=== PATIENT | male | born 1975 | race Caucasian/White ===

== ENCOUNTER 2023-05-28 16:01 | Observation (INO) | payer OTHER ==
[2023-05-28] MEDS ORDERED: LIDOCAINE 2%-EPI 1:100,000 20 ML VIAL SQ STA (16:21)
[2023-05-28] MEDS ORDERED: TRANEXAMIC 1,000 MG/100ML-NACL 1,000 MG in SALINE 1 100ML.BAG IVPB ONE (16:28)
--- NOTE | 2023-05-28 16:41 | ED ---
General Adult HPI - General Chief complaint: Syncope Stated complaint: Fall Time Seen by Provider: 05/28/23 16:06 Source: EMS Mode of arrival: EMS Limitations: no limitations - History of Present Illness Initial comments: Dictation was produced using [employer] dictation software. please excuse any grammatical, word or spelling errors. Chief Complaint: 47-year-old male presents to the received prior with head injury History of Present Illness: A 47-year-old incarcerated male presents to the ER for head injury. Patient was in his cell by himself when he fell backwards. Patient is amnestic to the recent past. He reports that his last recollection was looking up and seeing the camp guard. According to nurse received report from skilled nursing nurse she states that patient had seizure-like activity. Patient has no history of seizure. He has history of colostomy, restless leg syndrome and depression. There was significant bleeding from the posterior scalp. Patient complains of mild headache. he does report some anterior chest pain. The ROS documented in this emergency department record has been reviewed and confirmed by me. Those systems with pertinent positive or negative responses have been documented in the HPI. All other systems are other negative and/or noncontributory. - Related Data Home Medications Medication Instructions Recorded Confirmed Escitalopram [Lexapro] 10 mg PO DAILY 10/06/22 10/06/22 Gabapentin 300 mg PO TID 10/06/22 10/06/22 Previous Rx's Medication Instructions Recorded Acetaminophen Tab [Tylenol] 650 mg PO Q6HR PRN tab 10/07/22 Lisinopril-Hctz 20-25 mg 1 each PO BID #60 tab 10/07/22 [Zestoretic 20-25] Naproxen 250 mg PO Q8H #15 tablet 10/07/22 Nicotine 14Mg/24Hr Patch [Habitrol] 1 patch TRANSDERM DAILY #14 patch 10/07/22 Allergies Allergy/AdvReac Type Severity Reaction Status Date / Time Penicillins Allergy Rash/Hives Verified 10/06/22 11:07 Review of Systems ROS Statement: Those systems with pertinent positive or pertinent negative responses have been documented in the HPI. ROS Other: All systems not noted in ROS Statement are negative. Past Medical History Additional Past Medical History / Comment(s): DEPRESSION, RESTLESS LEG SYNDROME History of Any Multi-Drug Resistant Organisms: None Reported Past Surgical History: Bowel Resection Additional Past Surgical History / Comment(s): OSTOMY Past Psychological History: Depression Smoking Status: Current every day smoker Past Alcohol Use History: Occasional Past Drug Use History: None Reported General Exam - General Exam Comments Initial Comments: PHYSICAL EXAM: General Impression: Alert and oriented x3, not in acute distress HEENT: Complex left occipital laceration with active bleeding with large underlying hematoma, extra-ocular movements intact, pupils equal and reactive to light bilaterally, mucous membranes moist. Cardiovascular: Heart regular rate and rhythm Chest: Able to complete full sentences, no retractions, no tachypnea Abdomen: abdomen soft, non-tender, non-distended, no organomegaly Musculoskeletal: Pulses present and equal in all extremities, no peripheral edema Motor: no focal deficits noted Neurological: CN II-XII grossly intact, no focal motor or sensory deficits noted Skin: Intact with no visualized rashes Psych: Normal affect and mood Limitations: no limitations Course Vital Signs 05/28/23 16:05 Temperature 97.7 F Pulse Rate 62 Respiratory 18 Rate Blood Pressure 116/75 O2 Sat by Pulse 99 Oximetry EKG Findings - EKG Comments: EKG Findings:: My EKG interpretation: Ventricular rate 62, sinus rhythm,. Interval 150, QRS 11, QTc 450. No FL prolongation, no QTC prolongation, no ST or T-wave changes noted. Overall, this EKG is unremarkable Procedures - Laceration Laceration #1 Consent Obtained: verbal consent, emergent situation Indication: laceration Site: scalp Description: stellate Size of Sutures: other (gregory) Patient Tolerated Procedure: well Medical Decision Making - Medical Decision Making Was pt. sent in by a medical professional or institution (, PA, LEASE OPERATOR, urgent care, hospital, or [facility]...) When possible be specific @ -Halfway Did you speak to anyone other than the patient for history (EMS, parent, family, police, friend...)? What history was obtained from this source @ -sabrina akins at the bedside states that skilled nursing nurse was concerned he may have had a seizure Did you review nursing and triage notes (agree or disagree)? Why? @ -I reviewed and agree with nursing and triage notes Were old charts reviewed (outside hosp., previous admission, EMS record, old EKG, old radiological studies, urgent care reports/EKG's, [facility] records)? Report findings @ -No old charts were reviewed Differential Diagnosis (chest pain, altered mental status, abdominal pain women, abdominal pain men, vaginal bleeding, musculoskeletal, weakness, fever, dyspnea, syncope, headache, dizziness, GI bleed, back pain, seizure, CVA, palpatations, mental health)? @ -not applicable EKG interpreted by me (3pts min.). @ -None done X-rays interpreted by me (1pt min.). @ -See above CT interpreted by me (1pt min.). @ -CT head and C-spine and chest shows no acute processes U/S interpreted by me (1pt. min.). @ -None done What testing was considered but not performed or refused? (CT, X-rays, U/S, labs)? Why? @ -None What meds were considered but not given or refused? Why? @ -None Did you discuss the management of the patient with other professionals (professionals i.e. , PA, LEASE OPERATOR, lab, RT, psych nurse, social work program coordinator, forensic nurse, teacher, investment officer, case management social worker)? Give summary @ -Case discussed with Dr. Romero for observation admission Was smoking cessation discussed for >3mins.? @ -No Was critical care preformed (if so, how long)? @ -No Were there social determinants of health that impacted care today? How? (Homelessness, low income, unemployed, alcoholism, drug addiction, transportation, low edu. Level, literacy, decrease access to med. care, skilled nursing, rehab)? @ -No Was there de-escalation of care discussed even if they declined (Discuss DNR or withdrawal of care, Hospice)? DNR status @ -No What co-morbidities impacted this encounter? (DM, HTN, Smoking, COPD, CAD, Cancer, CVA, ARF, Chemo, Hep., AIDS, mental health diagnosis, sleep apnea, morbid obesity)? @ -None Was patient admitted / discharged? Hospital course, mention meds given and route, prescriptions, significant lab abnormalities, going to OR and other pertinent info. @ -47-year-old incarcerated male presents to the emergency department after having a fall incident at skilled nursing. Was unwitnessed. There was some history of seizure-like activity throughout the time of the fall. Patient is amnestic to the event. He has no history of seizure. Vital signs upon arrival are within acceptable limits. Imaging study shows no life-threatening traumatic injuries. Scalp laceration was repaired with gregory. Patient's lacerations reevaluated with cessation of bleeding. Patient will be admitted to the hospital for amnesia and concerns for new onset seizure. Medicine and neurology will be consulted. Undiagnosed new problem with uncertain prognosis? @ -No Drug Therapy requiring intensive monitoring for toxicity (Heparin, Nitro, Ins ulin, Cardizem)? @ -No Were any procedures done? @ -No Diagnosis/symptom? Acute, or Chronic, or Acute on Chronic? Uncomplicated (without systemic symptoms) or Complicated (systemic symptoms)? @ -Scalp laceration, head injury, new-onset seizure? Side effects of treatment? @ -No Exacerbation, Progression, or Severe Exacerbation? @ -No Poses a threat to life or bodily function? How? (Chest pain, USA, PA, pneumonia, PE, COPD, DKA, ARF, appy, cholecystitis, CVA, Diverticulitis, Homicidal, Suicidal, threat to staff... and all critical care pts) @ -yes - Lab Data Result diagrams: 05/28/23 16:51 05/28/23 16:51 Lab Results 05/28/23 05/28/23 05/28/23 Range/Units 16:51 16:51 16:51 WBC 5.7 (3.8-10.6) k/uL RBC 4.05 L (4.30-5.90) m/uL Hgb 13.8 (13.0-17.5) gm/dL Hct 38.6 L (39.0-53.0) % MCV 95.2 (80.0-100.0) fL MCH 33.9 (25.0-35.0) pg MCHC 35.7 (31.0-37.0) g/dL RDW 11.6 (11.5-15.5) % Plt Count 247 (150-450) k/uL MPV 7.3 Neutrophils % 60 % Lymphocytes % 29 % Monocytes % 7 % Eosinophils % 1 % Basophils % 0 % Neutrophils # 3.4 (1.3-7.7) k/uL Lymphocytes # 1.7 (1.0-4.8) k/uL Monocytes # 0.4 (0-1.0) k/uL Eosinophils # 0.1 (0-0.7) k/uL Basophils # 0.0 (0-0.2) k/uL PT 10.2 (9.0-12.0) sec INR 1.0 (<1.2) APTT 24.3 (22.0-30.0) sec Sodium 137 (137-145) mmol/L Potassium 4.6 (3.5-5.1) mmol/L Chloride 100 (98-107) mmol/L Carbon Dioxide 28 (22-30) mmol/L Anion Gap 9 mmol/L BUN 19 (9-20) mg/dL Creatinine 0.95 (0.66-1.25) mg/dL Est GFR (CKD-EPI)AfAm >90 (>60 ml/min/1.73 sqM) Est GFR (CKD-EPI)NonAf >90 (>60 ml/min/1.73 sqM) Glucose 100 H (74-99) mg/dL Calcium 9.5 (8.4-10.2) mg/dL Magnesium 2.1 (1.6-2.3) mg/dL Total Bilirubin 0.5 (0.2-1.3) mg/dL AST 40 (17-59) U/L ALT 60 H (4-49) U/L Alkaline Phosphatase 47 (38-126) U/L Total Protein 7.6 (6.3-8.2) g/dL Albumin 4.5 (3.5-5.0) g/dL Disposition Clinical Impression: Seizure Disposition: ADMITTED IP TO THIS [facility] Condition: Fair Referrals: None,Stated [Primary Care Provider] - 1-2 days Decision Time: 18:36
[2023-05-28 17:06] LABS: Basophils % (A) 0 %; Eosinophils # (A) 0.1 k/uL (0-0.7); Eosinophils % (A) 1 %; HCT 38.6 % (39.0-53.0); HGB 13.8 gm/dL (13.0-17.5); Lymphocytes # (A) 1.7 k/uL (1.0-4.8); Lymphocytes % (A) 29 %; MCH 33.9 pg (25.0-35.0); MCHC 35.7 g/dL (31.0-37.0); MCV 95.2 fL (80.0-100.0); Mean Platelet Volume 7.3; Monocytes # (A) 0.4 k/uL (0-1.0); Monocytes % (A) 7 %; Neutrophils # (A) 3.4 k/uL (1.3-7.7); Neutrophils % (A) 60 %; Platelet Count 247 k/uL (150-450); RBC 4.05 m/uL (4.30-5.90); RDW 11.6 % (11.5-15.5); WBC 5.7 k/uL (3.8-10.6)
[2023-05-28 17:22] LABS: Prothrombin Time 10.2 sec (9.0-12.0)
[2023-05-28 17:23] LABS: Partial Thromboplastin Time 24.3 sec (22.0-30.0)
[2023-05-28 17:46] LABS: ALT 60 U/L (4-49); AST 40 U/L (17-59); African American GFR (CKD) >90 (>60 ml/min/1.73 sqM); Albumin 4.5 g/dL (3.5-5.0); Alkaline Phosphatase 47 U/L (38-126); Anion Gap 9 mmol/L; Blood Urea Nitrogen 19 mg/dL (9-20); Calcium 9.5 mg/dL (8.4-10.2); Carbon Dioxide 28 mmol/L (22-30); Chloride 100 mmol/L (98-107); Glucose 100 mg/dL (74-99); Magnesium 2.1 mg/dL (1.6-2.3); Non-African American GFR(CKD) >90 (>60 ml/min/1.73 sqM); Potassium 4.6 mmol/L (3.5-5.1); Sodium 137 mmol/L (137-145); Total Bilirubin 0.5 mg/dL (0.2-1.3); Total Protein 7.6 g/dL (6.3-8.2)
--- NOTE | 2023-05-28 18:03 | CT ---
EXAMINATION TYPE: CT brain tuan granados DATE OF EXAM: 05/28/2023 COMPARISON: HISTORY: Fall from standing, +LOC, scalp laceration CT DLP: 1547 mGycm Automated exposure control for dose reduction was used. TECHNIQUE: CT scan of the head and cervical spine are performed without contrast. FINDINGS: Head CT: The ventricles, basal cisterns and sulci over the convexities within normal limits and there is no ma ss effect or shift of midline structures Is no abnormal density is seen throughout the brain parenchyma and there is no acute intra or extra-a xial hemorrhage. Posterior fossa is grossly normal. The intraorbital contents appear normal and symmetric. Visualized paranasal sinuses and mastoid air cells are well aerated. There is marked soft tissue swelling over the left parietal region and there are metallic gregory wit hin the soft tissues. The calvarium is intact. CT cervical spine. Craniovertebral junction relationships and prevertebral soft tissues are normal. Cervical vertebral segments are normal in height and alignment and there is no fracture subluxation. There is moderate degenerative disease at C5-6 level where there is moderate disc space narrowing and spondylosis. The uncovertebral joints and facet joints are intact there is no bony encroachment of the cervical sp ine spinal canal or neural foramina. IMPRESSION: 1. Head CT: No acute bleed or mass effect. Marked soft tissue swelling over the left occipital region with surgical gregory. The calvarium is intact. 2. Cervical spine CT: No evidence of acute trauma.
--- NOTE | 2023-05-28 18:07 | CT ---
EXAMINATION TYPE: CT chest wo con DATE OF EXAM: 05/28/2023 COMPARISON: None HISTORY: Fall from standing, chest pain CT DLP: 502.9 mGycm. Automated Exposure Control for Dose Reduction was Utilized. TECHNIQUE: CT scan of the thorax is performed without IV contrast. FINDINGS: LUNGS: The lungs are grossly clear, there is no concerning parenchymal mass or nodule identified. T here is no pleural effusion or pneumothorax seen. The tracheobronchial tree is patent. MEDIASTINUM: Lack of IV contrast is noted to limit evaluation for mediastinal and especially hilar ad enopathy. There are no definitive greater than 1 cm hilar or mediastinal lymph nodes. No cardiomega ly or pericardial effusion is seen. The osseous structures are intact. Limited scanning the upper abdomen reveals a tiny nonobstructing left renal calcification. IMPRESSION: 1. No acute cardiopulmonary disease. 2. No evidence of acute trauma. 3. tiny nonobstructing left renal calcification.
[2023-05-28] MEDS ORDERED: NALOXONE 0.4 MG/ML 1 ML VIAL IV PRN (18:28)
[2023-05-28] MEDS: SODIUM CHLORIDE 0.9% 1,000 ML IV SCH (19:31)
[2023-05-29] MEDS ORDERED: ACETAMINOPHEN TAB 325 MG TAB PO PRN (03:54)
[2023-05-29 11:29] LABS: Amphetamine Screen,Urine Not Detected (NotDetected); Barbiturate Screen,Urine Not Detected (NotDetected); Benzodiazepines Screen,Urine Not Detected (NotDetected); Cocaine Screen,Urine Not Detected (NotDetected); Methadone Screen, Urine Not Detected (NotDetected); Opiate Screen,Urine Not Detected (NotDetected); Oxycodone Screen, Urine Not Detected (NotDetected); Phencyclidine Screen,Urine Not Detected (NotDetected); Tricyclic Antidepressant,Urine Not Detected (NotDetected); Urn Cannabinoid Scrn Not Detected (NotDetected)
[2023-05-29 12:01] LABS: Alcohol <10 mg/dL
[2023-05-29] MEDS ORDERED: LORazepam 2 MG/ML INJ IV PRN (12:28)
--- NOTE | 2023-05-29 12:29 | P.CNNES ---
History of Present Illness Consult date: 05/29/23 Requesting physician: Ld Bernstein Reason for Consult: seizure, amnesia History of Present Illness: This is a 47-year-old gentleman who presented emergency department for seizure- like activity. It seems the patient is incarcerated and well he is in his cell he fell backwards and the patient had seizure-like activity. History is obtained from the the ED note and primary team. Per ED note, it seems that the patient's nurse in half-way that the patient had seizure-like activity and the patient has significant bleeding from the posterior scalp. Patient does not recall the episode and he remembers looking up and seeing the present guard. But according to the primary attending seems the patient was normal while in half-way but then was found down on the floor by one of the some it's across from him and the he was found blood on the floor and there is no shaking was reported upon seeing him. Patient denies any urinary or bowel incontinence or tongue bite. He does not recall what transpired and did not have any auras. He stated that he had similar episodes and was notified that those are PTSD. He states after those episodes he has a metallic taste in the tongue. He states the he's been incarcerated since December 2022. He denies any recent the alcohol illicit drug use. Denies any history of seizures. Currently denies off any focal weakness, headache, nausea vomiting, numbness. Some of the workup during his hospital visit consisted of: Patient is afebrile so far. Initial serum glucose is 100, AST of 40, ALT of 60, sodium is 137, calcium 7.5 the. White blood cells 5.[address] of the head is reported as no acute bleed or mass effect. Marketed soft tissue swelling over the left occipital region with surgical gregory. The calvarium is intact. I personally reviewed the CT of the head and there is no internal parenchymal bleed. There is no acute subacute ischemia and there is no mass effect intracranially. CT cervical spine was reported as no evidence of acute trauma. Review of Systems Positive and negative as per HPI. Past Medical History Additional Past Medical History / Comment(s): DEPRESSION, RESTLESS LEG SYNDROME History of Any Multi-Drug Resistant Organisms: None Reported Past Surgical History: Bowel Resection Additional Past Surgical History / Comment(s): OSTOMY Past Psychological History: Depression Smoking Status: Current every day smoker Past Alcohol Use History: Occasional Past Drug Use History: None Reported - Past Family History Father Family Medical History: Unable to Obtain Medications and Allergies Home Medications Medication Instructions Recorded Confirmed Type Citalopram Hydrobromide [CeleXA] 20 mg PO DAILY 05/28/23 05/28/23 History OLANZapine 5 mg PO HS 05/28/23 05/28/23 History hydrALAZINE HCL [Apresoline] 25 mg PO DAILY 05/28/23 05/28/23 History hydrOXYzine pamoate 50 mg PO HS 05/28/23 05/28/23 History lisinopriL [Zestril] 20 mg PO DAILY 05/28/23 05/28/23 History Allergies Allergy/AdvReac Type Severity Reaction Status Date / Time Penicillins Allergy Rash/Hives, Verified 05/28/23 18:47 Difficulty breathing Physical Examination - Vital Signs Vital Signs: Vital Signs Temp Pulse Resp BP Pulse Ox 05/29/23 08:00 86 16 125/91 97 05/29/23 06:47 86 18 120/82 98 05/29/23 03:51 75 18 125/58 100 05/28/23 23:00 98.2 F 86 18 127/87 98 05/28/23 21:25 96 18 118/74 98 05/28/23 20:00 104/76 100 05/28/23 19:31 88 18 104/76 99 05/28/23 18:00 71 11 L 126/90 100 05/28/23 17:00 80 31 H 126/86 100 05/28/23 16:05 97.7 F 62 18 116/75 99 Intake and Output 05/28/23 05/29/23 05/29/23 22:59 06:59 14:59 Other: Weight 90.718 kg GENERAL: The patient is lying in bed and is not in acute distress. HENT: Head is wrapped. NEUROLOGICAL: Higher mental function: The patient is awake, alert, oriented to self, place and time. Patient is following commands. No aphasia and no neglect. Cranial nerves: The pupils are round, equal and reactive to light and accommodation. Visual castro are full to confrontation throughout. Extraocular movement is intact no nystagmus is noted. Facial sensation is normal to touch throughout. The facial strength is normal throughout. Hearing is normal bilaterally to hand rub. Tongue is midline and moved [id number] without any difficulty. No dysarthria is noted. Shoulder shrug is normal bilaterally. Motor: The strength is 5 over 5 throughout. Normal tone and bulk. Cerebellum: Normal finger to nose bilaterally. Sensation: Sensation is normal to touch throughout. Reflexes (right/left): 2+ throughout. Plantars are downgoing bilaterally. Results - Laboratory Findings CBC and BMP: 05/28/23 16:51 05/28/23 16:51 Abnormal Lab Findings: Abnormal Labs 05/28/23 05/28/23 16:51 16:51 RBC 4.05 L Hct 38.6 L Glucose 100 H ALT 60 H Assessment and Plan Assessment: This is a 47-year-old gentleman who presented to the hospital because of found down in his cell unresponsiveness with blood around his head. Patient states he had similar episodes in the past and was told those were PTSD but has metallic taste afterwards. Denies any history of seizures. He states that he's been incarcerated since December 2022. Episode of unresponsiveness and had prior episodes in the past. Exact cause is unsure but possible seizure especially with metalic taste afterwards. History of prior syncopal episodes in the past. Major Depression History of polysubstance abuse and in September 2022 he had the positive amphetamines, methamphetamine and opiates Plan: I ordered a routine EEG. If EEG is negative then I recommend a prolonged EEG as an outpatient or an epilepsy monitoring unit (EMU) as an outpatient for further characterization I started the patient on Lamictal for concern of possible seizures. I started him on 25 mg daily at bedtime and every week to go up to 25 mg until 100 mg twice a day. So this week 25 daily at bedtime next week 25 mg twice a day in the third week 25 in the morning and 50 mg daily at bedtime etc. I notified the patient about the side effects of the medication that can cause a severe rash and Sanon-Yovany syndrome. I'll not start Keppra since patient stated that he has a major depression and it was severe which the Keppra can cause worsening of the mood behavioral issues. I ordered a urine drug screen with alcohol level Ordered TSH, vitamin B-12, folate Seizure precautions and seizure pads Cannot obtain MRI Brain since has metal and our MRI is not compatible as result. Placed the patient on Ativan 1 mg every 4 hours when necessary for seizure. We'll defer the rest of the medical management to primary team Per the [place] DMV, to avoid driving for 6 month until seizure-free, avoid heights, avoids swimming unassisted or using heavy machinery Upon discharge recommend the patient to follow-up with a neurologist as an outpatient within 2 weeks. Plan discussed with the patient, and the primary attending. Thank you for the consultation. Time with Patient: Greater than 30
[2023-05-29 13:08] LABS: T4, Free (Free Thyroxine) 0.79 ng/dL (0.78-2.19)
[2023-05-29] MEDS ORDERED: IBUPROFEN 600 MG TAB PO PRN (15:52)
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
--- NOTE | 2023-05-29 15:56 | EEG ---
ELECTROENCEPHALOGRAM REPORT CLINICAL HISTORY: This is a 47-year-old gentleman with episode of unresponsiveness. The video EEG is obtained to evaluate for seizure epileptiform activity. RELEVANT MEDICATION: The patient is not on any antiepileptic drugs. EEG TYPE: This is a routine 21-channel EEG with video using the 10/20 electrode placement system. DESCRIPTION: Wakefulness is only obtained. During awake state, the posterior-dominant rhythm consists of [id number]-gm-[id number] voltage of 9 hertz activity that is well modulated and well sustained. There is no physiological stage 2 sleep architecture. There is no focal slowing. Interictal and ictal, none. ACTIVATION PROCEDURE: Photic stimulation did evoke a posterior driving response at low flash frequency. There is no abnormality during the photic stimulation. Hyperventilation is not performed. CLINICAL INTERPRETATION: This is a normal routine EEG. There is no focal slowing, epileptiform discharge, or seizure on EEG. A normal routine EEG does not rule out underlying epilepsy. Clinical correlation is recommended. TAYLOR / LEIGH: [id number] / SUNI
[2023-05-29] MEDS ORDERED: ONDANSETRON 4 MG/2 ML VIAL IVP PRN (16:05)
[2023-05-29] MEDS ORDERED: bisacodyL 5 MG TABLET.DR PO PRN (16:05)
[2023-05-29] MEDS ORDERED: MELATONIN 3 MG TABLET PO PRN (16:05)
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
[2023-05-29 20:01] LABS: Glucose,Whole Blood 132 mg/dL (70-110)
[2023-05-29] MEDS: SODIUM CHLORIDE 0.9% 1,000 ML IV SCH (20:04)
[2023-05-29] MEDS: HEPARIN SODIUM,PORCINE 5,000 UNIT/ML 1 ML VIAL SQ SCH (20:05)
[2023-05-29] MEDS ORDERED: lamoTRIgine 25 MG TAB PO SCH (21:00)
[2023-05-30 08:11] VITALS: BP 116/76; PULSE 70; RESP 14; TEMP 98.6
[2023-05-30] MEDS: HEPARIN SODIUM,PORCINE 5,000 UNIT/ML 1 ML VIAL SQ SCH (09:25)
[2023-05-30] MEDS: SODIUM CHLORIDE 0.9% 1,000 ML IV SCH (10:25)
--- NOTE | 2023-05-30 13:05 | CA ---
Transthoracic Echo Report Name: Marquez Holcomb Age: 47 Gender: M : 1975 Exam Date: 05/30/2023 08:56 Exam Location: [place] Echo Ht (in): 69 Wt (lb): 200 Ordering Physician: Shantell Nielson DO Attending/Referring Phys: [id number], [place] Manager Of Product Brianna Cho RDCS Procedure CPT: Indications: Syncope Cardiac Hx: Technical Quality: Good Contrast 1: Total Dose (mL): Contrast 2: Total Dose (mL): MEASUREMENTS (Male / Female) Normal Values 2D ECHO LV Diastolic Diameter PLAX 4.0 cm 4.2 - 5.9 / 3.9 - 5.3 cm LV Systolic Diameter PLAX 2.6 cm IVS Diastolic Thickness 1.1 cm 0.6 - 1.0 / 0.6 - 0.9 cm LVPW Diastolic Thickness 1.0 cm 0.6 - 1.0 / 0.6 - 0.9 cm LV Relative Wall Thickness 0.5 RV Internal Dim ED PLAX 3.4 cm LA Systolic Diameter LX 3.0 cm 3.0 - 4.0 / 2.7 - 3.8 cm LV Diastolic Volume MOD 4C 95.6 cm??? LV Systolic Volume MOD 4C 43.4 cm??? LV Ejection Fraction MOD 4C 54.6 % LV Cardiac Index MOD 4C 1646.7 cm???/min???m??? LV Diastolic Length 4C 8.7 cm LV Systolic Length 4C 7.0 cm LV Diastolic Volume MOD 2C 60.9 cm??? LV Systolic Volume MOD 2C 21.3 cm??? LV Ejection Fraction MOD 2C 65.0 % LV Cardiac Index MOD 2C 1246.8 cm???/min???m??? LV Diastolic Length 2C 8.0 cm LV Systolic Length 2C 7.0 cm LA Volume 59.2 cm??? 18 - 58 / 22 - 52 cm??? LA Volume Index 27.9 cm???/m??? 16 - 28 cm???/m??? M-MODE Aortic Root Diameter MM 3.2 cm MV E Point Septal Separation 0.9 cm AV Cusp Separation MM 2.0 cm DOPPLER AV Peak Velocity 162.0 cm/s AV Peak Gradient 10.5 mmHg MV Area PHT 2.3 cm??? Mitral E Point Velocity 91.5 cm/s Mitral A Point Velocity 78.3 cm/s Mitral E to A Ratio 1.2 MV Deceleration Time 335.2 ms MV E' Velocity 11.1 cm/s Mitral E to MV E' Ratio 8.3 TR Peak Velocity 223.0 cm/s TR Peak Gradient 19.9 mmHg Right Ventricular Systolic Press 24.5 mmHg FINDINGS Left Ventricle Left ventricular ejection fraction is estimated at 60-65 %. Small left ventricular cavity. Left ventricular wall thickness normal. Right Ventricle Mild right ventricular dilatation. Right ventricular systolic pressure within normal limits. Right Atrium Normal right atrial size. Left Atrium Normal left atrial size. Mitral Valve Structurally normal mitral valve. No mitral stenosis, regurgitation or prolapse. Aortic Valve Trileaflet aortic valve. No aortic valve stenosis or regurgitation. Prominent Calcification of tips of LCC and NCC Tricuspid Valve Structurally normal tricuspid valve. Mild tricuspid regurgitation. Pulmonic Valve Structurally normal pulmonic valve. No pulmonic regurgitation. Pericardium No pericardial effusion. Aorta Normal size aortic root and proximal ascending aorta. CONCLUSIONS Normal LV size and systolic function Mildlyenlarged right ventricle Calcification of the aortic valve leaflets especially the tip of the noncoronary and left coronary cusps However this is a tickly difficult study with suboptimal acoustic windows Previewed by: Dr. Zack Carter MD (Electronically Signed) Final Date: 30 May 2023 13:03
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
--- NOTE | 2023-05-30 15:45 | P.PN ---
Subjective Progress Note Date: 05/30/23 In follow-up with the patient and the patient has not had any further seizures according to patient nurse at. Patient feels the he's doing well and no further events and no further neurological issues at. Objective - Vital Signs Vital signs: Vital Signs Temp 98.6 F 05/30/23 08:00 Pulse 70 05/30/23 08:00 Resp 14 05/30/23 08:00 BP 116/76 05/30/23 08:00 Pulse Ox 100 05/30/23 08:00 FiO2 Intake & Output 05/29/23 05/30/23 05/30/23 18:59 06:59 18:59 Intake Total 360 250 Balance 360 250 Weight 90.718 kg Intake: Oral 360 250 Other: Voiding Method Toilet Toilet # Voids 5 - Exam GENERAL: The patient is lying in bed and is not in acute distress. HENT: Head is wrapped. NEUROLOGICAL: Higher mental function: The patient is awake, alert, oriented to self, place and time. Patient is following commands. No aphasia and no neglect. Cranial nerves: The pupils are round, equal and reactive to light and accommodation. Visual castro are full to confrontation throughout. Extraocular movement is intact no nystagmus is noted. Facial sensation is normal to touch throughout. The facial strength is normal throughout. Hearing is normal bilaterally to hand rub. Tongue is midline and moved [id number] without any difficulty. No dysarthria is noted. Shoulder shrug is normal bilaterally. Motor: The strength is 5 over 5 throughout. Normal tone and bulk. Cerebellum: Normal finger to nose bilaterally. Sensation: Sensation is normal to touch throughout. Reflexes (right/left): 2+ throughout. Plantars are downgoing bilaterally. Some of the workup during his hospital visit consisted of: Patient is afebrile so far. Initial serum glucose is 100, AST of 40, ALT of 60, sodium is 137, calcium 7.5 the. White blood cells 5.7 thousand. Vitamin B12 is 474, folate is 12.6 TSH is 0.451 and the free T4 is a 0.79. CT of the head is reported as no acute bleed or mass effect. Marketed soft tissue swelling over the left occipital region with surgical gregory. The calvarium is intact. I personally reviewed the CT of the head and there is no internal parenchymal bleed. There is no acute subacute ischemia and there is no mass effect intracranially. CT cervical spine was reported as no evidence of acute trauma. Routine EEG is normal. Urine drug screen is not detected and serum alcohol was less than 10. - Labs CBC & Chem 7: 05/28/23 16:51 05/28/23 16:51 Labs: Abnormal Lab Results - Last 24 Hours (Table) 05/29/23 Range/Units 20:00 POC Glucose (mg/dL) 132 H (70-110) mg/dL Assessment and Plan Assessment: This is a 47-year-old gentleman who presented to the hospital because of found down in his cell unresponsiveness with blood around his head. Patient states he had similar episodes in the past and was told those were PTSD but has metallic taste afterwards. Denies any history of seizures. He states that he's been incarcerated since December 2022. Episode of unresponsiveness and had prior episodes in the past. Exact cause is unsure but possible seizure especially with metalic taste afterwards. No further seizure from yesterday till today. History of prior syncopal episodes in the past. Major Depression History of polysubstance abuse and in September 2022 he had the positive amphetamines, methamphetamine and opiates Plan: Routine EEG is normal. Recommend a prolonged EEG as an outpatient or an epilepsy monitoring unit (EMU) as an outpatient for further characterization I started the patient on Lamictal for concern of possible seizures. I started him on 25 mg daily at bedtime and every week to go up to 25 mg until 100 mg twice a day. So this week 25 daily at bedtime next week 25 mg twice a day in the third week 25 in the morning and 50 mg daily at bedtime etc. I notified the patient about the side effects of the medication that can cause a severe rash and Sanon-Yovayn syndrome. I'll not start Keppra since patient stated that he has a major depression and it was severe which the Keppra can cause worsening of the mood behavioral issues. Seizure precautions and seizure pads Cannot obtain MRI Brain since has metal and our MRI is not compatible as result. We'll defer the rest of the medical management to primary team Per the [place] DMV, to avoid driving for 6 month until seizure-free, avoid heights, avoids swimming unassisted or using heavy machinery Upon discharge recommend the patient to follow-up with a neurologist as an outpatient within 2 weeks. Plan discussed with the patient and his nurse. There is no further neurological work-up. Time with Patient: Less than 30
== END 2023-05-30 14:55 ==
LOC: EC 16:01 → 5NMEDONC 18:28 → 1SOBS 05-29 12:38
PROVIDERS: ADMIT Internal Medicine; ATTEND Internal Medicine
DX: R56.9 Unspecified convulsions (principal); S01.01XA Laceration without foreign body of scalp, initial encounter; W19.XXXA Unspecified fall, initial encounter; R41.3 Other amnesia; G25.81 Restless legs syndrome; F32.9 Major depressive disorder, single episode, unspecified; F43.10 Post-traumatic stress disorder, unspecified; F17.200 Nicotine dependence, unspecified, uncomplicated; Z93.3 Colostomy status; Z79.899 Other long term (current) drug therapy; Z88.0 Allergy status to penicillin
CPT/HCPCS: 96361 ×4; 96372 ×2; 96360; 99285; 36415; 95816; 93005; 93306; 84439; 80053; 84443; 82607; 82746; 83735; 85025; 85610; 85730; 80306; 72125; 70450; 71250; G0378 ×4; G0480; J1644 ×2; 80320

== ENCOUNTER 2025-03-12 21:02 | Emergency (ER) | payer OTHER ==
[2025-03-12 21:19] VITALS: RESP 18
--- NOTE | 2025-03-12 22:14 | ED ---
Medical Clearance HPI - General Chief complaint: Medical Clearance Stated complaint: Left side ofstomach leaking from shot, and in pain Time Seen by Provider: 03/12/25 21:48 Source: police Mode of arrival: ambulatory - History of Present Illness Initial comments: This patient is a 49-year-old man with history of previous colostomy, performed at the [facility] years ago, brought to have clearance for the [facility]. The patient was being processed and they noted that there is no colostomy bag present. The patient states he does not wear a bag because there is a peristomal hernia that tends to cause obstruction when the bag is placed. The patient manages by taping gauze over the ostomy. Patient denies any symptoms, not having pain, nausea, vomiting or problem with ostomy output. MD Complaint: medical clearance requested -: year(s) Compliant with Home Medications: Yes Traumatic Symptoms: denies traumatic injury Treatments Prior to Arrival: none Home medications: Home Medications Medication Instructions Recorded Confirmed Citalopram Hydrobromide [CeleXA] 20 mg PO DAILY 05/28/23 05/28/23 OLANZapine 5 mg PO HS 05/28/23 05/28/23 Previous Rx's Medication Instructions Recorded lamoTRIgine [LaMICtal] 25 mg PO HS tab 05/30/23 lisinopriL [Zestril] 10 mg PO DAILY #0 05/30/23 Allergies/Adverse reactions: Allergies Allergy/AdvReac Type Severity Reaction Status Date / Time Penicillins Allergy Rash/Hives, Verified 03/12/25 21:18 Difficulty breathing Review of Systems ROS Statement: Those systems with pertinent positive or pertinent negative responses have been documented in the HPI. ROS Other: All systems not noted in ROS Statement are negative. Constitutional: Denies: fever Respiratory: Denies: cough, dyspnea Cardiovascular: Denies: chest pain, palpitations Gastrointestinal: Denies: abdominal pain, vomiting, diarrhea, melena, hematochezia Musculoskeletal: Denies: back pain Neurological: Denies: headache, weakness Past Medical History Past Medical History: Seizure Disorder Additional Past Medical History / Comment(s): DEPRESSION, RESTLESS LEG SYNDROME History of Any Multi-Drug Resistant Organisms: None Reported Past Surgical History: Bowel Resection Additional Past Surgical History / Comment(s): OSTOMY Past Anesthesia/Blood Transfusion Reactions: No Reported Reaction Past Psychological History: Depression Smoking Status: Current every day smoker Past Alcohol Use History: Occasional Past Drug Use History: Methamphetamine - Past Family History Father Family Medical History: Unable to Obtain General Exam Limitations: no limitations General appearance: alert, in no apparent distress Head exam: Present: atraumatic, normocephalic Eye exam: Present: normal appearance. Absent: scleral icterus, conjunctival injection ENT exam: Present: normal oropharynx Neck exam: Present: normal inspection Respiratory exam: Present: normal lung sounds bilaterally. Absent: respiratory distress, wheezes, rales, rhonchi, stridor Cardiovascular Exam: Present: regular rate, normal rhythm, normal heart sounds. Absent: systolic murmur, diastolic murmur, rubs, gallop GI/Abdominal exam: Present: soft, hernia (There is a periostomal hernia which is easily reduced, nontender. There is currently normal-appearing ostomy output, no blood or tarry stool). Absent: distended, tenderness, guarding, rebound, rigid, mass Extremities exam: Present: normal inspection, normal capillary refill Back exam: Present: normal inspection Neurological exam: Present: alert Skin exam: Present: warm, dry, intact, normal color. Absent: rash Course Vital Signs 03/12/25 03/12/25 21:16 22:35 Temperature 98.7 F 98.1 F Pulse Rate 105 H 87 Respiratory 18 18 Rate Blood Pressure 153/91 148/86 O2 Sat by Pulse 99 99 Oximetry Medical Decision Making - Medical Decision Making This patient brought for clearance to the [facility]. He has no medical complaints. Physical exam is unremarkable. Patient is cleared to release to police custody. Was pt. sent in by a medical professional or institution (Dr. PA, CANE WEIGHER, urgent care, hospital, or retirement...) When possible be specific @ -[No] Did you speak to anyone other than the patient for history (EMS, parent, family, police, friend...)? What history was obtained from this source @ -[No] Did you review nursing and triage notes (agree or disagree)? Why? @ -[I reviewed and agree with nursing and triage notes] Were old charts reviewed (outside hosp., previous admission, EMS record, old EKG, old radiological studies, urgent care reports/EKG's, retirement records)? Report findings @ -[No old charts were reviewed] Differential Diagnosis (chest pain, altered mental status, abdominal pain women, abdominal pain men, vaginal bleeding, weakness, fever, dyspnea, syncope, headache, dizziness, GI bleed, back pain, seizure, CVA, palpatations, mental health, musculoskeletal)? @ -[Differential Abdominal Pain Men: Appendicitis, cholecystitis, diverticulosis, ischemic bowel, pancreatitis, hep atitis, UTI, gastroenteritis, AAA, incarcerated hernia, bowel obstruction, constipation, inflammatory bowel, hepatitis, peptic ulcer disease, splenic infarction, perforated viscus, testicular torsion, this is not meant to be an all-inclusive list EKG interpreted by me (3pts min.). @ -[As above] X-rays interpreted by me (1pt min.). @ -[None done] CT interpreted by me (1pt min.). @ -[None done] U/S interpreted by me (1pt. min.). @ -[None done] What testing was considered but not performed or refused? (CT, X-rays, U/S, labs)? Why? @ -[None] What meds were considered but not given or refused? Why? @ -[None] Did you discuss the management of the patient with other professionals (professionals i.e. , PA, CANE WEIGHER, lab, RT, psych nurse, social media editor, health sciences program coordinator, teacher, geological technical officer, case supervisor)? Give summary @ -[No] Was smoking cessation discussed for >3mins.? @ -[No] Was critical care preformed (if so, how long)? @ -[No] Were there social determinants of health that impacted care today? How? (Homelessness, low income, unemployed, alcoholism, drug addiction, transportation, low edu. Level, literacy, decrease access to med. care, mcc, rehab)? @ -[No] Was there de-escalation of care discussed even if they declined (Discuss DNR or withdrawal of care, Hospice)? DNR status @ -[No] What co-morbidities impacted this encounter? (DM, HTN, Smoking, COPD, CAD, Cancer, CVA, ARF, Chemo, Hep., AIDS, mental health diagnosis, sleep apnea, morbid obesity)? @ -[None] Was patient admitted / discharged? Hospital course, mention meds given and route, prescriptions, significant lab abnormalities, going to OR and other pertinent info. @ -[Patient is 49-year-old man who is here to have clearance to go to [facility] custody. The patient is evaluated and medically cleared for police cu stody. Undiagnosed new problem with uncertain prognosis? @ -[No] Drug Therapy requiring intensive monitoring for toxicity (Heparin, Nitro, Insulin, Cardizem)? @ -[No] Were any procedures done? @ -[No] Diagnosis/symptom? @ -[Imelda stomal hernia, chronic Encounter for medical legal clearance Acute, or Chronic, or Acute on Chronic? @ -[Chronic Uncomplicated (without systemic symptoms) or Complicated (systemic symptoms)? @ -Uncomplicated Side effects of treatment? @ -[No] Exacerbation, Progression, or Severe Exacerbation? @ -[No] Poses a threat to life or bodily function? How? (Chest pain, [place], [place], pneumonia, PE, COPD, DKA, ARF, appy, cholecystitis, CVA, Diverticulitis, Homicidal, Suicidal, threat to staff... and all critical care pts) @ -[No] All treatments are based on ideal body weight as in ED triage Disposition Clinical Impression: Parastomal hernia without obstruction or gangrene Disposition: HOME SELF-CARE Condition: Good Instructions (If sedation given, give patient instructions): Colostomy Care (ED) Is patient prescribed a controlled substance at d/c from ED?: No Referrals: Nonstaff,Physician [Primary Care Provider] - 1-2 days
[2025-03-12 22:36] VITALS: BP 148/86; PULSE 87; TEMP 98.1
== END 2025-03-12 23:33 | disposition home or self-care (01) ==
LOC: EC 21:02
DX: K43.5 Parastomal hernia without obstruction or gangrene (principal); F17.200 Nicotine dependence, unspecified, uncomplicated; Z88.0 Allergy status to penicillin
CPT/HCPCS: 99283